=== PATIENT | male | born 1985 | race Hispanic/Latino ===

== ENCOUNTER 2021-10-30 02:21 | Inpatient (IN) | payer OTHER ==
[~2021-10-30] VITALS: Ht 182.9 cm; Wt 228.7 kg
[2021-10-30] MEDS ORDERED: FUROSEMIDE 40MG VIAL IV ONE (03:00)
[2021-10-30 04:11] LABS: BASOPHILS % (AUTO) 0.8 % (0.0-5.0); EOSINOPHILS % (AUTO) 2.1 % (0.0-8.0); HEMATOCRIT 24.2 % (42-54); LYMPHOCYTES % (AUTO) 14.8 % (21.0-51.0); MEAN CORPUSCULAR HEMOGLOBIN 23.2 pg (27.0-33.0); MEAN CORPUSCULAR HGB CONC 28.5 g/dL (32.0-36.0); MEAN CORPUSCULAR VOLUME 81.2 fL (79-99); MONOCYTES % (AUTO) 10.4 % (3.0-13.0); NEUTROPHILS % (AUTO) 71.7 % (40.0-77.0); PLATELET COUNT (AUTO) 96 K/uL (130-400); RED BLOOD CELL COUNT(AUTO) 2.98 MIL/uL (4.50-6.20); RED CELL DISTRIBUTION WIDTH 16.6 % (11.0-15.5); WHITE BLOOD COUNT (AUTO) 5.2 K/uL (4.8-10.8)
[2021-10-30 04:14] LABS: CREATININE 0.8 mg/dL (0.5-1.5); POTASSIUM 3.9 mmol/L (3.5-5.1)
[2021-10-30 04:18] LABS: ALBUMIN 3.1 g/dL (3.5-5.0); BILIRUBIN,DIRECT 0.4 mg/dL (0.0-0.3); BILIRUBIN,TOTAL 1.7 mg/dL (0.2-1.0); MAGNESIUM 1.7 mg/dL (1.80-2.40); TOTAL PROTEIN, SERUM 7.1 g/dL (6.0-8.3)
[2021-10-30 04:33] LABS: APPEARANCE,URINE Clear (CLEAR); BILIRUBIN,URINE Negative (NEGATIVE); COLOR,URINE Yellow (YELLOW); GLUCOSE, URINE (UA) Negative (NEGATIVE); KETONES,URINE Negative (NEGATIVE); LEUKOCYTE ESTERASE ,URINE Trace (NEGATIVE); NITRATE,URINE Negative (NEGATIVE); OCCULT BLOOD,URINE Moderate (NEGATIVE); PH,URINE 6.5 (5.0-8.0); PROTEIN,URINE 300 mg/dL (NEGATIVE)
[2021-10-30 04:38] LABS: B-TYPE NATRIURETIC PEPTIDE 146 pg/mL (0-100)
[2021-10-30 04:44] LABS: HEMOGLOBIN A1C 7.3 % (4.0-6.0)
[2021-10-30] MEDS: BUMETANIDE 1MG/4ML VIAL IVP SCH (04:46)
[2021-10-30 04:54] LABS: BACTERIA,URINE Few /HPF (None Seen)
[2021-10-30] MEDS ORDERED: LACTULOSE 20 GM/30 ML UDCUP PO PRN (05:30)
[2021-10-30] MEDS ORDERED: ONDANSETRON 4MG INJ IV PRN (05:30)
[2021-10-30] MEDS: FUROSEMIDE 20MG VIAL IV SCH ×3 (05:30→20:41)
[2021-10-30] MEDS ORDERED: ACETAMINOPHEN 325 MG TAB PO PRN ×2 (05:30)
[2021-10-30] MEDS: INSULIN HUMULIN R 100 UNIT/ML 3ML SQ SCH ×4 (07:30→21:00)
[2021-10-30] MEDS: PANTOPRAZOLE 40 MG/VIAL IVP SCH ×2 (09:02→20:40)
[2021-10-30 12:01] LABS: HEMATOCRIT 26.6 % (42-54)
[2021-10-30 15:50] VITALS: BP 142/77
[2021-10-30 19:51] VITALS: BP 120/72
[2021-10-30 20:43] LABS: HEMATOCRIT 26.3 % (42-54)
[2021-10-30 23:56] VITALS: BP 118/73
[2021-10-31 03:24] LABS: HEMATOCRIT 25.8 % (42-54); MEAN CORPUSCULAR HGB CONC 28.3 g/dL (32.0-36.0); MEAN CORPUSCULAR VOLUME 81.4 fL (79-99); RED BLOOD CELL COUNT(AUTO) 3.17 MIL/uL (4.50-6.20); RED CELL DISTRIBUTION WIDTH 16.8 % (11.0-15.5); WHITE BLOOD COUNT (AUTO) 3.7 K/uL (4.8-10.8)
[2021-10-31 03:40] LABS: BILIRUBIN,TOTAL 2.3 mg/dL (0.2-1.0); CREATININE 0.7 mg/dL (0.5-1.5); POTASSIUM 3.7 mmol/L (3.5-5.1); TOTAL PROTEIN, SERUM 7.4 g/dL (6.0-8.3)
[2021-10-31 04:02] VITALS: BP 134/76
[2021-10-31] MEDS: BUMETANIDE 1MG/4ML VIAL IVP SCH (04:30)
[2021-10-31] MEDS: FUROSEMIDE 20MG VIAL IV SCH ×3 (05:18→22:30)
[2021-10-31] MEDS: INSULIN HUMULIN R 100 UNIT/ML 3ML SQ SCH ×2 (05:41→21:00)
[2021-10-31 08:00] VITALS: BP 135/74
[2021-10-31] MEDS: PANTOPRAZOLE 40 MG/VIAL IVP SCH ×2 (09:00→22:30)
[2021-10-31] MEDS ORDERED: PHENAZOPYRIDINE HCL 200 MG TABLET PO SCH (10:30)
[2021-10-31 10:54] LABS: INR 1.21 (0.85-1.15)
[2021-10-31] MEDS: CEFTRIAXONE 1G VIAL IVP SCH (11:12)
[2021-10-31 12:00] VITALS: BP 128/73
[2021-10-31] MEDS ORDERED: POTASSIUM CHLORIDE 10% ELIXIR 20 MEQ/15 ML UDCUP PO PRN (12:30)
[2021-10-31] MEDS ORDERED: LIDOCAINE HCL-MPF 1% 2ML VIAL IV PRN (12:30)
[2021-10-31] MEDS ORDERED: POTASSIUM CHLORIDE 20MEQ/100ML 100 ML IV PRN (12:30)
[2021-10-31 16:00] VITALS: BP 123/67
[2021-10-31 20:00] VITALS: BP 118/65
[2021-11-01] VITALS: BP 144/58
[2021-11-01 04:00] VITALS: BP 136/61
[2021-11-01 04:10] LABS: BASOPHILS % (AUTO) 1.2 % (0.0-5.0); EOSINOPHILS % (AUTO) 4.1 % (0.0-8.0); HEMATOCRIT 25.9 % (42-54); MEAN CORPUSCULAR HEMOGLOBIN 22.7 pg (27.0-33.0); MEAN CORPUSCULAR HGB CONC 27.8 g/dL (32.0-36.0); MEAN CORPUSCULAR VOLUME 81.7 fL (79-99); NEUTROPHILS % (AUTO) 60.4 % (40.0-77.0); PLATELET COUNT (AUTO) 90 K/uL (130-400); RED BLOOD CELL COUNT(AUTO) 3.17 MIL/uL (4.50-6.20); RED CELL DISTRIBUTION WIDTH 16.9 % (11.0-15.5); WHITE BLOOD COUNT (AUTO) 3.4 K/uL (4.8-10.8)
[2021-11-01] MEDS: BUMETANIDE 1MG/4ML VIAL IVP SCH (04:30)
[2021-11-01 04:33] LABS: ALBUMIN 2.8 g/dL (3.5-5.0); BILIRUBIN,TOTAL 2.1 mg/dL (0.2-1.0); CREATININE 0.7 mg/dL (0.5-1.5); POTASSIUM 3.3 mmol/L (3.5-5.1); TOTAL PROTEIN, SERUM 7.3 g/dL (6.0-8.3)
[2021-11-01] MEDS: FUROSEMIDE 20MG VIAL IV SCH ×2 (04:43→14:41)
[2021-11-01] MEDS: KCL 20 MEQ ERTAB PO PRN ×3 (04:44→20:40)
[2021-11-01] MEDS: INSULIN HUMULIN R 100 UNIT/ML 3ML SQ SCH ×3 (06:56→16:30)
[2021-11-01 08:00] VITALS: BP 122/67
[2021-11-01] MEDS: FUROSEMIDE 40MG VIAL IV SCH ×2 (09:50→19:30)
[2021-11-01] MEDS: AcetaZOLAMIDE 250 MG TAB PO SCH ×2 (09:50→20:38)
[2021-11-01] MEDS: PANTOPRAZOLE 40 MG/VIAL IVP SCH ×2 (09:50→20:39)
[2021-11-01] MEDS: SPIRONOLACTONE 25 MG TAB PO SCH ×2 (09:51→20:39)
[2021-11-01] MEDS: CEFTRIAXONE 1G VIAL IVP SCH (09:52)
[2021-11-01 12:00] VITALS: BP 125/65
[2021-11-01 16:00] VITALS: BP 136/78
[2021-11-01 20:00] VITALS: BP 140/96
[2021-11-02] VITALS: BP 133/72
[2021-11-02 04:00] VITALS: BP 134/74
[2021-11-02] MEDS ORDERED: 0.9% NACL 250ML 250 ML ONE (04:51)
[2021-11-02 05:55] LABS: ALBUMIN 2.9 g/dL (3.5-5.0); BASOPHILS % (AUTO) 0.9 % (0.0-5.0); CREATININE 0.7 mg/dL (0.5-1.5); EOSINOPHILS % (AUTO) 6.5 % (0.0-8.0); HEMATOCRIT 27.4 % (42-54); LYMPHOCYTES % (AUTO) 22.6 % (21.0-51.0); MEAN CORPUSCULAR HEMOGLOBIN 23.1 pg (27.0-33.0); MEAN CORPUSCULAR HGB CONC 28.5 g/dL (32.0-36.0); MEAN CORPUSCULAR VOLUME 81.3 fL (79-99); MONOCYTES % (AUTO) 9.8 % (3.0-13.0); NEUTROPHILS % (AUTO) 59.9 % (40.0-77.0); PLATELET COUNT (AUTO) 92 K/uL (130-400); POTASSIUM 3.4 mmol/L (3.5-5.1); RED BLOOD CELL COUNT(AUTO) 3.37 MIL/uL (4.50-6.20); RED CELL DISTRIBUTION WIDTH 17.1 % (11.0-15.5); TOTAL PROTEIN, SERUM 7.4 g/dL (6.0-8.3); WHITE BLOOD COUNT (AUTO) 3.4 K/uL (4.8-10.8)
[2021-11-02] MEDS: INSULIN HUMULIN R 100 UNIT/ML 3ML SQ SCH ×4 (06:38→21:00)
[2021-11-02 08:06] VITALS: BP 132/71
[2021-11-02] MEDS ORDERED: MAGNESIUM 2GM PREMIX 50ML 50 ML IV PRN (09:00)
[2021-11-02] MEDS: SPIRONOLACTONE 25 MG TAB PO SCH ×2 (09:34→21:31)
[2021-11-02] MEDS: CEFTRIAXONE 1G VIAL IVP SCH (09:34)
[2021-11-02] MEDS: FUROSEMIDE 40 MG TABLET PO SCH ×2 (09:34→16:39)
[2021-11-02] MEDS: PANTOPRAZOLE 40 MG/VIAL IVP SCH ×2 (09:34→21:30)
[2021-11-02] MEDS: AcetaZOLAMIDE 250 MG TAB PO SCH ×2 (09:35→21:31)
[2021-11-02 11:35] VITALS: BP 129/78
[2021-11-02] MEDS: KCL 20 MEQ ERTAB PO PRN ×2 (12:57→16:38)
[2021-11-02 17:40] VITALS: BP 147/79
[2021-11-02 20:25] VITALS: BP 143/75
[2021-11-03] VITALS (8 sets, daily range): BP systolic 114–154; BP diastolic 33–88
[2021-11-03 03:51] LABS: BASOPHILS % (AUTO) 0.8 % (0.0-5.0); EOSINOPHILS % (AUTO) 6.1 % (0.0-8.0); HEMATOCRIT 28.4 % (42-54); LYMPHOCYTES % (AUTO) 19.8 % (21.0-51.0); MEAN CORPUSCULAR HEMOGLOBIN 22.3 pg (27.0-33.0); MEAN CORPUSCULAR HGB CONC 28.2 g/dL (32.0-36.0); MEAN CORPUSCULAR VOLUME 79.3 fL (79-99); MONOCYTES % (AUTO) 9.5 % (3.0-13.0); NEUTROPHILS % (AUTO) 63.2 % (40.0-77.0); PLATELET COUNT (AUTO) 27 K/uL (130-400); RED BLOOD CELL COUNT(AUTO) 3.58 MIL/uL (4.50-6.20); WHITE BLOOD COUNT (AUTO) 3.6 K/uL (4.8-10.8)
[2021-11-03 04:14] LABS: CREATININE 0.7 mg/dL (0.5-1.5); POTASSIUM 4.2 mmol/L (3.5-5.1)
[2021-11-03] MEDS: INSULIN HUMULIN R 100 UNIT/ML 3ML SQ SCH ×4 (06:00→21:00)
[2021-11-03] MEDS ORDERED: ACETAMINOPHEN WITH CODEINE 1 TAB TAB PO PRN (08:00)
[2021-11-03] MEDS: LIDOCAINE 5% TOPICAL PATCH TP SCH (09:12)
[2021-11-03] MEDS: FUROSEMIDE 40 MG TABLET PO SCH ×2 (09:12→16:58)
[2021-11-03] MEDS: PANTOPRAZOLE 40 MG/VIAL IVP SCH ×2 (09:12→22:02)
[2021-11-03] MEDS: SPIRONOLACTONE 25 MG TAB PO SCH ×2 (09:12→22:02)
[2021-11-03] MEDS: AcetaZOLAMIDE 250 MG TAB PO SCH ×2 (09:16→22:01)
[2021-11-03] MEDS: CEFTRIAXONE 1G VIAL IVP SCH (09:16)
[2021-11-03] MEDS ORDERED: LACTULOSE 20 GM/30 ML UDCUP PO SCH (16:00)
[2021-11-04 04:05] VITALS: BP 132/77
[2021-11-04 05:02] LABS: HEMATOCRIT 28.2 % (42-54); LYMPHOCYTES % (AUTO) 17.5 % (21.0-51.0); MEAN CORPUSCULAR HEMOGLOBIN 22.8 pg (27.0-33.0); MEAN CORPUSCULAR HGB CONC 29.1 g/dL (32.0-36.0); MEAN CORPUSCULAR VOLUME 78.3 fL (79-99); MONOCYTES % (AUTO) 8.8 % (3.0-13.0); NEUTROPHILS % (AUTO) 65.9 % (40.0-77.0); PLATELET COUNT (AUTO) 96 K/uL (130-400); RED CELL DISTRIBUTION WIDTH 16.9 % (11.0-15.5)
[2021-11-04 05:19] LABS: ALBUMIN 2.9 g/dL (3.5-5.0); BILIRUBIN,TOTAL 1.5 mg/dL (0.2-1.0); CREATININE 0.7 mg/dL (0.5-1.5); TOTAL PROTEIN, SERUM 7.7 g/dL (6.0-8.3)
[2021-11-04] MEDS: INSULIN HUMULIN R 100 UNIT/ML 3ML SQ SCH ×4 (06:45→20:45)
[2021-11-04 08:00] VITALS: BP 140/82
[2021-11-04] MEDS: LIDOCAINE 5% TOPICAL PATCH TP SCH (08:21)
[2021-11-04] MEDS: AcetaZOLAMIDE 250 MG TAB PO SCH ×2 (08:21→20:36)
[2021-11-04] MEDS: FUROSEMIDE 40 MG TABLET PO SCH ×2 (08:22→18:29)
[2021-11-04] MEDS: ACETAMINOPHEN WITH CODEINE 1 TAB TAB PO PRN ×2 (08:22→09:41)
[2021-11-04] MEDS: PANTOPRAZOLE 40 MG/VIAL IVP SCH ×2 (08:22→20:36)
[2021-11-04] MEDS: SPIRONOLACTONE 25 MG TAB PO SCH ×2 (08:22→20:38)
[2021-11-04] MEDS ORDERED: DULOXETINE HCL 30 MG CAP PO SCH (09:00)
[2021-11-04] MEDS: CEFTRIAXONE 1G VIAL IVP SCH (10:54)
[2021-11-04 12:00] VITALS: BP 135/76
[2021-11-04 16:00] VITALS: BP 142/85
[2021-11-04] MEDS ORDERED: HYDROCODONE/ACETAMINOPHEN 5/325 MG TAB PO PRN (16:30)
[2021-11-04 20:00] VITALS: BP 148/77
[2021-11-05] VITALS: BP 130/82
[2021-11-05 04:00] VITALS: BP 125/71
[2021-11-05 04:24] LABS: HEMATOCRIT 29.6 % (42-54); MEAN CORPUSCULAR HEMOGLOBIN 22.7 pg (27.0-33.0); MEAN CORPUSCULAR HGB CONC 28.7 g/dL (32.0-36.0); MEAN CORPUSCULAR VOLUME 78.9 fL (79-99); RED BLOOD CELL COUNT(AUTO) 3.75 MIL/uL (4.50-6.20); RED CELL DISTRIBUTION WIDTH 16.8 % (11.0-15.5)
[2021-11-05 04:33] LABS: CREATININE 0.7 mg/dL (0.5-1.5); POTASSIUM 3.8 mmol/L (3.5-5.1)
[2021-11-05] MEDS: INSULIN HUMULIN R 100 UNIT/ML 3ML SQ SCH ×4 (05:57→21:00)
[2021-11-05 08:00] VITALS: BP 130/68
[2021-11-05] MEDS: LIDOCAINE 5% TOPICAL PATCH TP SCH (08:30)
[2021-11-05] MEDS: SPIRONOLACTONE 25 MG TAB PO SCH ×2 (08:31→21:02)
[2021-11-05] MEDS: AcetaZOLAMIDE 250 MG TAB PO SCH ×2 (08:31→21:02)
[2021-11-05] MEDS: PANTOPRAZOLE 40 MG/VIAL IVP SCH ×2 (08:31→21:02)
[2021-11-05] MEDS: DULOXETINE HCL 30 MG CAP PO SCH (08:31)
[2021-11-05] MEDS: FUROSEMIDE 40 MG TABLET PO SCH ×2 (08:32→16:46)
[2021-11-05] MEDS: CEFTRIAXONE 1G VIAL IVP SCH (11:19)
[2021-11-05 11:54] VITALS: BP 149/77
[2021-11-05 16:00] VITALS: BP 128/68
[2021-11-05 20:00] VITALS: BP 126/69
[2021-11-06] VITALS: BP 121/70
[2021-11-06 04:00] VITALS: BP 134/77
[2021-11-06 04:50] LABS: HEMATOCRIT 28.5 % (42-54); MEAN CORPUSCULAR HEMOGLOBIN 22.7 pg (27.0-33.0); MEAN CORPUSCULAR HGB CONC 29.5 g/dL (32.0-36.0); PLATELET COUNT (AUTO) 111 K/uL (130-400); RED CELL DISTRIBUTION WIDTH 16.7 % (11.0-15.5); WHITE BLOOD COUNT (AUTO) 4.4 K/uL (4.8-10.8)
[2021-11-06 05:08] LABS: CREATININE 0.7 mg/dL (0.5-1.5); MAGNESIUM 1.9 mg/dL (1.80-2.40); PHOSPHORUS 3.4 mg/dL (2.5-4.9); POTASSIUM 3.7 mmol/L (3.5-5.1)
[2021-11-06] MEDS: INSULIN HUMULIN R 100 UNIT/ML 3ML SQ SCH ×4 (06:27→21:00)
[2021-11-06 08:00] VITALS: BP 107/68
[2021-11-06] MEDS: LIDOCAINE 5% TOPICAL PATCH TP SCH (08:54)
[2021-11-06] MEDS: PANTOPRAZOLE 40 MG/VIAL IVP SCH ×2 (08:54→21:20)
[2021-11-06] MEDS: SPIRONOLACTONE 25 MG TAB PO SCH ×2 (08:55→21:20)
[2021-11-06] MEDS: AcetaZOLAMIDE 250 MG TAB PO SCH ×2 (08:55→21:20)
[2021-11-06] MEDS: DULOXETINE HCL 30 MG CAP PO SCH (08:55)
[2021-11-06] MEDS: FUROSEMIDE 40 MG TABLET PO SCH ×2 (08:55→17:08)
[2021-11-06] MEDS: HYDROCODONE/ACETAMINOPHEN 5/325 MG TAB PO PRN (09:30)
[2021-11-06] MEDS: CEFTRIAXONE 1G VIAL IVP SCH (10:26)
[2021-11-06 12:00] VITALS: BP 129/69
[2021-11-06 16:00] VITALS: BP 127/78
[2021-11-06 20:00] VITALS: BP_SYST 125; BP_SYST 133; BP_DIAS 64; BP_DIAS 74
[2021-11-07] VITALS: BP 133/74
[2021-11-07 04:00] VITALS: BP 127/73
[2021-11-07 05:34] LABS: BASOPHILS % (AUTO) 0.7 % (0.0-5.0); EOSINOPHILS % (AUTO) 5.3 % (0.0-8.0); HEMATOCRIT 29.9 % (42-54); LYMPHOCYTES % (AUTO) 16.6 % (21.0-51.0); MEAN CORPUSCULAR HEMOGLOBIN 22.6 pg (27.0-33.0); MEAN CORPUSCULAR HGB CONC 29.4 g/dL (32.0-36.0); MEAN CORPUSCULAR VOLUME 76.9 fL (79-99); MONOCYTES % (AUTO) 10.2 % (3.0-13.0); NEUTROPHILS % (AUTO) 66.5 % (40.0-77.0); PLATELET COUNT (AUTO) 118 K/uL (130-400); RED BLOOD CELL COUNT(AUTO) 3.89 MIL/uL (4.50-6.20); RED CELL DISTRIBUTION WIDTH 16.9 % (11.0-15.5); WHITE BLOOD COUNT (AUTO) 4.5 K/uL (4.8-10.8)
[2021-11-07] MEDS: INSULIN HUMULIN R 100 UNIT/ML 3ML SQ SCH ×4 (06:15→20:21)
[2021-11-07 06:30] LABS: ALBUMIN 2.9 g/dL (3.5-5.0); BILIRUBIN,TOTAL 1.7 mg/dL (0.2-1.0); CREATININE 0.7 mg/dL (0.5-1.5); POTASSIUM 3.9 mmol/L (3.5-5.1); TOTAL PROTEIN, SERUM 8.1 g/dL (6.0-8.3)
[2021-11-07 07:10] VITALS: BP 123/64
[2021-11-07] MEDS: AcetaZOLAMIDE 250 MG TAB PO SCH ×2 (08:51→21:34)
[2021-11-07] MEDS: FUROSEMIDE 40 MG TABLET PO SCH ×2 (08:51→16:35)
[2021-11-07] MEDS: LIDOCAINE 5% TOPICAL PATCH TP SCH (08:51)
[2021-11-07] MEDS: SPIRONOLACTONE 25 MG TAB PO SCH ×2 (08:51→21:33)
[2021-11-07] MEDS: DULOXETINE HCL 30 MG CAP PO SCH (08:51)
[2021-11-07] MEDS: HYDROCODONE/ACETAMINOPHEN 5/325 MG TAB PO PRN (09:20)
[2021-11-07] MEDS ORDERED: PANT40TA54 PO (10:34)
[2021-11-07] MEDS ORDERED: FURO40TA5 PO (10:34)
[2021-11-07] MEDS ORDERED: ACET-2079 PO (10:34)
[2021-11-07] MEDS ORDERED: DULO30CA52 PO (10:34)
[2021-11-07] MEDS ORDERED: SPIR50TA PO (10:34)
[2021-11-07] MEDS ORDERED: ACET250T28 PO (10:34)
[2021-11-07] MEDS: CEFTRIAXONE 1G VIAL IVP SCH (11:00)
[2021-11-07 11:10] VITALS: BP 136/74
[2021-11-07 15:10] VITALS: BP 105/55
[2021-11-07] MEDS: PANTOPRAZOLE 40 MG TAB DR PO SCH (16:35)
[2021-11-07 20:11] VITALS: BP 133/76
[2021-11-08] VITALS: BP 129/76
[2021-11-08 04:00] VITALS: BP 123/71
[2021-11-08] MEDS: PANTOPRAZOLE 40 MG TAB DR PO SCH ×2 (05:55→16:32)
[2021-11-08] MEDS: INSULIN HUMULIN R 100 UNIT/ML 3ML SQ SCH ×3 (05:55→16:28)
[2021-11-08 08:13] VITALS: BP 126/69
[2021-11-08] MEDS: FUROSEMIDE 40 MG TABLET PO SCH ×2 (08:41→16:32)
[2021-11-08] MEDS: DULOXETINE HCL 30 MG CAP PO SCH (08:41)
[2021-11-08] MEDS: SPIRONOLACTONE 25 MG TAB PO SCH (08:42)
[2021-11-08] MEDS: AcetaZOLAMIDE 250 MG TAB PO SCH (08:44)
[2021-11-08] MEDS: LIDOCAINE 5% TOPICAL PATCH TP SCH (09:02)
[2021-11-08 12:53] VITALS: BP 133/77
[2021-11-08 16:00] VITALS: BP 122/63
== END 2021-11-08 18:30 | disposition home or self-care (01) | DRG 378 ==
LOC: EDH 02:21 → EDHIP 02:22 → UNDOADMOB 02:22 → INTOOBSV 02:22 → OBSVTOIN 02:22 → EDHIP 17:21 → 4BH 17:21
PROVIDERS: ADMIT Hospitalist; ATTEND Hospitalist
PROC: 30233N1 Transfusion of Nonautologous Red Blood Cells into Peripheral Vein, Percutaneous Approach (ICD-10-PCS; principal; 2021-10-30)
DX: K92.2 Gastrointestinal hemorrhage, unspecified (principal); D62 Acute posthemorrhagic anemia; Z68.45 Body mass index [BMI] 70 or greater, adult; N39.0 Urinary tract infection, site not specified; K74.60 Unspecified cirrhosis of liver; I85.10 Secondary esophageal varices without bleeding; E66.01 Morbid (severe) obesity due to excess calories; Z91.14 Patient's other noncompliance with medication regimen; E11.9 Type 2 diabetes mellitus without complications; I10 Essential (primary) hypertension; Z79.899 Other long term (current) drug therapy
CPT/HCPCS: 36415; 71045; 73562; 76705; 80048; 80053; 80076; 81001; 82948; 83036; 83735; 83880; 84100; 84484; 85014; 85018; 85025; 85027; 85610; 86850; 86900; 86901; 86923; 87088; 93005; 93971; 97039; 99291; C9113; G0378; J0696; J1815; J1940; J3475; J3490; J7050; P9016

== ENCOUNTER 2021-12-12 00:34 | Emergency (ER) | payer OTHER ==
[~2021-12-12] VITALS: Ht 182.9 cm; Wt 263.1 kg
[~2021-12-12 00:34] MED LIST: ACET-2079 PO; ACET250T28 PO; DULO30CA52 PO; FURO40TA5 PO; PANT40TA54 PO; SPIR50TA PO
[2021-12-12] MEDS ORDERED: FUROSEMIDE 40MG VIAL IV ONE ×2 (02:30→05:00)
[2021-12-12 02:32] LABS: BASOPHILS % (AUTO) 0.6 % (0.0-5.0); EOSINOPHILS % (AUTO) 2.8 % (0.0-8.0); LYMPHOCYTES % (AUTO) 12.3 % (21.0-51.0); MEAN CORPUSCULAR HEMOGLOBIN 20.2 pg (27.0-33.0); MEAN CORPUSCULAR HGB CONC 27.2 g/dL (32.0-36.0); MEAN CORPUSCULAR VOLUME 74.2 fL (79-99); MONOCYTES % (AUTO) 8.9 % (3.0-13.0); NEUTROPHILS % (AUTO) 75.2 % (40.0-77.0); PLATELET COUNT (AUTO) 115 K/uL (130-400); RED BLOOD CELL COUNT(AUTO) 3.91 MIL/uL (4.50-6.20); RED CELL DISTRIBUTION WIDTH 17.3 % (11.0-15.5)
[2021-12-12 02:42] LABS: CREATININE 0.8 mg/dL (0.5-1.5); POTASSIUM 3.8 mmol/L (3.5-5.1)
[2021-12-12 02:49] LABS: BILIRUBIN,TOTAL 2.6 mg/dL (0.2-1.0); MAGNESIUM 1.8 mg/dL (1.80-2.40); TOTAL PROTEIN, SERUM 7.9 g/dL (6.0-8.3)
[2021-12-12 03:06] LABS: B-TYPE NATRIURETIC PEPTIDE 132 pg/mL (0-100)
[2021-12-12] MEDS ORDERED: BUMETANIDE 1MG/4ML VIAL IVP SCH (04:00)
[2021-12-12] MEDS ORDERED: FURO40TA7 PO (04:52)
[2021-12-12 05:54] VITALS: BP 139/65
== END 2021-12-12 06:07 | disposition home or self-care (01) ==
LOC: EDH 00:34
DX: N50.89 Other specified disorders of the male genital organs (principal); R60.1 Generalized edema; Z20.822 Contact with and (suspected) exposure to COVID-19; E11.9 Type 2 diabetes mellitus without complications; I11.9 Hypertensive heart disease without heart failure; Z79.899 Other long term (current) drug therapy
CPT/HCPCS: 36415; 71045; 80053; 83735; 83880; 84484; 85025; 87635; 93005; 96374; 96375; 99285; C9803; J1940 ×2; J3490

== ENCOUNTER 2022-03-14 19:26 | Inpatient (IN) | payer OTHER ==
[~2022-03-14] VITALS: Ht 182.9 cm; Wt 270.9 kg
[~2022-03-14 19:26] MED LIST changes: +FURO40TA7 PO
[2022-03-14] MEDS ORDERED: 0.9%NACL 1000ML 1,000 ML IV ONE ×2 (20:00→20:30)
[2022-03-14] MEDS ORDERED: ERYTHROMYCIN BASE 0.5% OPHTH OINT 1 GM TUBE OU SCH (20:30)
[2022-03-14] MEDS ORDERED: CEFTRIAXONE 1G VIAL IVP ONE (20:30)
[2022-03-14 21:04] LABS: BASOPHILS % (AUTO) 1.1 % (0.0-5.0); EOSINOPHILS % (AUTO) 5.9 % (0.0-8.0); HEMATOCRIT 25.5 % (42-54); LYMPHOCYTES % (AUTO) 11.2 % (21.0-51.0); MEAN CORPUSCULAR HEMOGLOBIN 16.8 pg (27.0-33.0); MEAN CORPUSCULAR HGB CONC 25.1 g/dL (32.0-36.0); MEAN CORPUSCULAR VOLUME 66.9 fL (79-99); MONOCYTES % (AUTO) 12.2 % (3.0-13.0); NEUTROPHILS % (AUTO) 69.1 % (40.0-77.0); NUCLEATED RED BLOOD CELLS 0.6 % (0.0-0.19); PLATELET COUNT (AUTO) 103 K/uL (130-400); RED BLOOD CELL COUNT(AUTO) 3.81 MIL/uL (4.50-6.20); RED CELL DISTRIBUTION WIDTH 19.4 % (11.0-15.5); WHITE BLOOD COUNT (AUTO) 6.3 K/uL (4.8-10.8)
[2022-03-14 21:20] LABS: CREATININE 0.7 mg/dL (0.5-1.5); POTASSIUM 3.4 mmol/L (3.5-5.1)
[2022-03-14 21:27] LABS: INFLUENZA TYPE A NEGATIVE FOR TYPE A (NEG); INFLUENZA TYPE B NEGATIVE FOR TYPE B (NEG)
[2022-03-14 21:29] LABS: ALBUMIN 2.7 g/dL (3.5-5.0); TOTAL PROTEIN, SERUM 7.5 g/dL (6.0-8.3)
[2022-03-14] MEDS ORDERED: 0.9% NACL 500ML IV.SOLN 500 ML IV ONE (21:30)
[2022-03-14] MEDS ORDERED: GLUCAGON 1MG KIT 1 MG ML IM PRN (22:30)
[2022-03-14] MEDS ORDERED: DEXTROSE 50%-WATER 50 ML DISP.SYRIN IV PRN (22:30)
[2022-03-14] MEDS: INSULIN HUMULIN R 100 UNIT/ML 3ML SQ SCH (22:30)
[2022-03-14] MEDS ORDERED: NITROGLYCERIN 0.4 MG SL TAB SL PRN (22:30)
[2022-03-14] MEDS ORDERED: ONDANSETRON 4MG INJ IV PRN (22:30)
[2022-03-14] MEDS ORDERED: VANCOMYCIN 1G/250ML KIT 250 ML IV SCH (22:30)
[2022-03-14] MEDS ORDERED: ACETAMINOPHEN 325 MG TAB PO PRN (22:30)
[2022-03-14 22:41] LABS: HEMOGLOBIN A1C 6.9 % (4.0-6.0)
[2022-03-14] MEDS ORDERED: VANCOMYCIN PROTOCOL PER PHARMACY IV SCH (23:30)
[2022-03-15] MEDS ORDERED: ALBUMIN (HUMAN) 25% 50 ML IV SCH (00:30)
[2022-03-15] MEDS ORDERED: FUROSEMIDE 40MG VIAL IV ONE (00:30)
[2022-03-15 01:00] VITALS: BP 109/55
[2022-03-15 01:04] LABS: INR 1.3 (0.85-1.15)
[2022-03-15 01:06] LABS: PARTIAL THROMBOPLASTIN TIME 29.5 SEC (26.3-35.5)
[2022-03-15 02:07] LABS: APPEARANCE,URINE CLOUDY (CLEAR); BILIRUBIN,URINE 0.5 mg/dL (NEGATIVE); COLOR,URINE DARK-YELLOW (YELLOW); GLUCOSE, URINE (UA) 50 mg/dL (NEGATIVE); KETONES,URINE NEGATIVE (NEGATIVE); LEUKOCYTE ESTERASE ,URINE 250 Leu/uL (NEGATIVE); NITRATE,URINE NEGATIVE (NEGATIVE); OCCULT BLOOD,URINE NEGATIVE (NEGATIVE); PROTEIN,URINE 70 mg/dL (NEGATIVE); UROBILINOGEN,URINE 12 mg/dL (0.2-1.0)
[2022-03-15 02:15] LABS: BACTERIA,URINE RARE /HPF (None Seen); MUCUS,URINE FEW LPF (None Seen); SQUAMOUS EPITHELIAL CELL,UR MANY /HPF (0-2); URIC ACID CRYSTALS,URINE RARE /LPF (None Seen)
[2022-03-15 04:59] VITALS: BP 110/84
[2022-03-15] MEDS: INSULIN HUMULIN R 100 UNIT/ML 3ML SQ SCH ×4 (05:14→20:50)
[2022-03-15 07:12] LABS: BASOPHILS % (AUTO) 0.8 % (0.0-5.0); HEMATOCRIT 26.9 % (42-54); LYMPHOCYTES % (AUTO) 12.6 % (21.0-51.0); MEAN CORPUSCULAR HEMOGLOBIN 17.9 pg (27.0-33.0); MEAN CORPUSCULAR VOLUME 68.8 fL (79-99); MONOCYTES % (AUTO) 12.3 % (3.0-13.0); NEUTROPHILS % (AUTO) 65.6 % (40.0-77.0); NUCLEATED RED BLOOD CELLS 0.7 % (0.0-0.19); PLATELET COUNT (AUTO) 105 K/uL (130-400); RED BLOOD CELL COUNT(AUTO) 3.91 MIL/uL (4.50-6.20); RED CELL DISTRIBUTION WIDTH 20.6 % (11.0-15.5); WHITE BLOOD COUNT (AUTO) 6.1 K/uL (4.8-10.8)
[2022-03-15 07:30] VITALS: BP 103/63
[2022-03-15 07:40] LABS: ALBUMIN 2.7 g/dL (3.5-5.0); CREATININE 0.7 mg/dL (0.5-1.5); MAGNESIUM 1.9 mg/dL (1.80-2.40); POTASSIUM 3.3 mmol/L (3.5-5.1); TOTAL PROTEIN, SERUM 7.5 g/dL (6.0-8.3)
[2022-03-15] MEDS ORDERED: FAMOTIDINE 20MG TAB PO SCH (09:00)
[2022-03-15] MEDS: ERYTHROMYCIN BASE 0.5% OPHTH OINT 1 GM TUBE OU SCH ×2 (09:27→20:53)
[2022-03-15 11:00] VITALS: BP 119/62
[2022-03-15] MEDS ORDERED: POTASSIUM CHLORIDE 20MEQ/100ML 100 ML IV PRN (14:30)
[2022-03-15] MEDS ORDERED: COMPOUND IV REFRIGERATED 1 EACH IVSOLN MISC PRN (14:30)
[2022-03-15] MEDS ORDERED: MAGNESIUM 2GM PREMIX 50ML 50 ML IV PRN (14:30)
[2022-03-15] MEDS ORDERED: LIDOCAINE HCL-MPF 1% 2ML VIAL IV PRN (14:30)
[2022-03-15] MEDS: KCL 20 MEQ ERTAB PO PRN (15:57)
[2022-03-15] MEDS: VANCOMYCIN 2GM/500 ML BAG 500 ML IV SCH ×2 (15:57→22:26)
[2022-03-15 16:00] VITALS: BP 117/67
[2022-03-15 19:00] VITALS: BP 122/66
[2022-03-15] MEDS: CEFTRIAXONE 1G VIAL IV SCH (20:52)
[2022-03-16] VITALS: BP 132/70
[2022-03-16] MEDS: ACETAMINOPHEN 325 MG TAB PO PRN ×2 (00:48→21:45)
[2022-03-16] MEDS: POTASSIUM CHLORIDE 10% ELIXIR 20 MEQ/15 ML UDCUP PO PRN ×2 (00:48→02:29)
[2022-03-16 04:00] VITALS: BP 141/75
[2022-03-16 04:43] LABS: BASOPHILS % (AUTO) 1.4 % (0.0-5.0); HEMATOCRIT 28.1 % (42-54); LYMPHOCYTES % (AUTO) 16.9 % (21.0-51.0); MEAN CORPUSCULAR HEMOGLOBIN 17.5 pg (27.0-33.0); MEAN CORPUSCULAR HGB CONC 25.3 g/dL (32.0-36.0); MEAN CORPUSCULAR VOLUME 69.4 fL (79-99); MONOCYTES % (AUTO) 12.2 % (3.0-13.0); NUCLEATED RED BLOOD CELLS 0.7 % (0.0-0.19); PLATELET COUNT (AUTO) 103 K/uL (130-400); RED BLOOD CELL COUNT(AUTO) 4.05 MIL/uL (4.50-6.20); RED CELL DISTRIBUTION WIDTH 20.4 % (11.0-15.5); WHITE BLOOD COUNT (AUTO) 5.9 K/uL (4.8-10.8)
[2022-03-16 05:06] LABS: ALBUMIN 2.9 g/dL (3.5-5.0); CREATININE 0.7 mg/dL (0.5-1.5); POTASSIUM 4.7 mmol/L (3.5-5.1)
[2022-03-16 05:09] LABS: B-TYPE NATRIURETIC PEPTIDE 205 pg/mL (0-100)
[2022-03-16] MEDS: INSULIN HUMULIN R 100 UNIT/ML 3ML SQ SCH ×4 (05:26→21:28)
[2022-03-16 07:30] VITALS: BP 120/69
[2022-03-16] MEDS: VANCOMYCIN 2GM/500 ML BAG 500 ML IV SCH ×3 (07:36→23:54)
[2022-03-16] MEDS: ERYTHROMYCIN BASE 0.5% OPHTH OINT 1 GM TUBE OU SCH ×2 (07:36→21:28)
[2022-03-16 11:00] VITALS: BP 130/75
[2022-03-16] MEDS ORDERED: LEVO-70 PO (12:56)
[2022-03-16 16:00] VITALS: BP 142/83
[2022-03-16] MEDS ORDERED: BACITRACIN 1 EACH PACKET TP SCH (16:00)
[2022-03-16] MEDS ORDERED: FUROSEMIDE 20MG VIAL IV SCH (17:00)
[2022-03-16] MEDS ORDERED: BACITRACIN 28.4 GM OINT TP SCH (17:30)
[2022-03-16 20:00] VITALS: BP 136/70
[2022-03-16] MEDS: CEFTRIAXONE 1G VIAL IV SCH (21:26)
[2022-03-16] MEDS: FAMOTIDINE 20MG TAB PO SCH (21:28)
[2022-03-17] VITALS (7 sets, daily range): BP systolic 114–141; BP diastolic 61–79
[2022-03-17 05:13] LABS: % IRON SATURATION 4.3 % (30-44)
[2022-03-17 05:15] LABS: HEMATOCRIT 26.9 % (42-54); MEAN CORPUSCULAR HEMOGLOBIN 17.6 pg (27.0-33.0); MEAN CORPUSCULAR HGB CONC 25.7 g/dL (32.0-36.0); MEAN CORPUSCULAR VOLUME 68.8 fL (79-99); NUCLEATED RED BLOOD CELLS 0.4 % (0.0-0.19); RED BLOOD CELL COUNT(AUTO) 3.91 MIL/uL (4.50-6.20); RED CELL DISTRIBUTION WIDTH 20.5 % (11.0-15.5); WHITE BLOOD COUNT (AUTO) 5.2 K/uL (4.8-10.8)
[2022-03-17 05:24] LABS: ALBUMIN 2.7 g/dL (3.5-5.0); CREATININE 0.7 mg/dL (0.5-1.5); POTASSIUM 3.7 mmol/L (3.5-5.1); TOTAL PROTEIN, SERUM 7.5 g/dL (6.0-8.3)
[2022-03-17] MEDS: INSULIN HUMULIN R 100 UNIT/ML 3ML SQ SCH ×4 (07:00→21:48)
[2022-03-17] MEDS: VANCOMYCIN 2GM/500 ML BAG 500 ML IV SCH (08:51)
[2022-03-17] MEDS: ERYTHROMYCIN BASE 0.5% OPHTH OINT 1 GM TUBE OU SCH ×2 (08:51→21:42)
[2022-03-17] MEDS: FAMOTIDINE 20MG TAB PO SCH ×2 (08:51→21:48)
[2022-03-17 12:26] LABS: HEMATOCRIT 28.4 % (42-54)
[2022-03-17] MEDS: LEVOFLOXACIN 500 MG TABLET PO SCH (17:19)
[2022-03-17] MEDS ORDERED: PHARMACY COMMUNICATION MISC SCH (21:30)
[2022-03-18 04:10] VITALS: BP 146/86
[2022-03-18 05:27] LABS: HEMATOCRIT 27.7 % (42-54); MEAN CORPUSCULAR HEMOGLOBIN 18.2 pg (27.0-33.0); MEAN CORPUSCULAR HGB CONC 25.6 g/dL (32.0-36.0); RED BLOOD CELL COUNT(AUTO) 3.9 MIL/uL (4.50-6.20); RED CELL DISTRIBUTION WIDTH 21.9 % (11.0-15.5)
[2022-03-18 05:38] LABS: POTASSIUM 3.8 mmol/L (3.5-5.1)
[2022-03-18 05:39] LABS: CREATININE 0.6 mg/dL (0.5-1.5)
[2022-03-18] MEDS: INSULIN HUMULIN R 100 UNIT/ML 3ML SQ SCH ×4 (06:20→21:00)
[2022-03-18 08:00] VITALS: BP 133/70
[2022-03-18] MEDS: FAMOTIDINE 20MG TAB PO SCH ×2 (08:37→20:50)
[2022-03-18] MEDS: LEVOFLOXACIN 500 MG TABLET PO SCH (08:37)
[2022-03-18] MEDS: ERYTHROMYCIN BASE 0.5% OPHTH OINT 1 GM TUBE OU SCH ×2 (08:37→21:18)
[2022-03-18 12:00] VITALS: BP 117/55
[2022-03-18 16:00] VITALS: BP 125/75
[2022-03-18] MEDS ORDERED: COMPOUND IV MISC 1 EACH IVSOLN MISC PRN (16:00)
[2022-03-18 19:00] VITALS: BP 107/54
[2022-03-18] MEDS: ACETAMINOPHEN 325 MG TAB PO PRN (21:18)
[2022-03-18] MEDS: BACITRACIN 28.4 GM OINT TP SCH (21:22)
[2022-03-18 23:49] VITALS: BP 114/55
[2022-03-19 04:00] VITALS: BP 116/70
[2022-03-19 05:05] LABS: HEMATOCRIT 30.1 % (42-54); MEAN CORPUSCULAR HEMOGLOBIN 18.3 pg (27.0-33.0); MEAN CORPUSCULAR HGB CONC 25.6 g/dL (32.0-36.0); MEAN CORPUSCULAR VOLUME 71.7 fL (79-99); RED BLOOD CELL COUNT(AUTO) 4.2 MIL/uL (4.50-6.20); RED CELL DISTRIBUTION WIDTH 22.3 % (11.0-15.5); WHITE BLOOD COUNT (AUTO) 4.3 K/uL (4.8-10.8)
[2022-03-19 05:15] LABS: CREATININE 0.6 mg/dL (0.5-1.5)
[2022-03-19] MEDS: INSULIN HUMULIN R 100 UNIT/ML 3ML SQ SCH ×4 (06:50→21:00)
[2022-03-19] MEDS: CEFAZOLIN SODIUM 1 GM VIAL IVP SCH ×3 (06:50→22:25)
[2022-03-19 08:00] VITALS: BP 123/59
[2022-03-19] MEDS: BACITRACIN 28.4 GM OINT TP SCH (09:35)
[2022-03-19] MEDS: LEVOFLOXACIN 500 MG TABLET PO SCH (09:35)
[2022-03-19] MEDS: FAMOTIDINE 20MG TAB PO SCH ×2 (09:35→22:26)
[2022-03-19] MEDS: IRON SUCROSE COMPLEX 300 MG in 0.9%NACL 50ML 50 ML IV SCH (09:35)
[2022-03-19] MEDS: ERYTHROMYCIN BASE 0.5% OPHTH OINT 1 GM TUBE OU SCH ×2 (09:35→22:26)
[2022-03-19 11:52] VITALS: BP 129/77
[2022-03-19] MEDS: ACETAMINOPHEN 325 MG TAB PO PRN ×2 (12:14→22:36)
[2022-03-19 16:00] VITALS: BP 131/68
[2022-03-19 21:07] VITALS: BP 124/61
[2022-03-20 00:16] VITALS: BP 122/59
[2022-03-20 04:07] VITALS: BP 100/57
[2022-03-20] MEDS: CEFAZOLIN SODIUM 1 GM VIAL IVP SCH ×3 (06:13→23:08)
[2022-03-20] MEDS: INSULIN HUMULIN R 100 UNIT/ML 3ML SQ SCH ×4 (06:14→20:43)
[2022-03-20 08:00] VITALS: BP 128/68
[2022-03-20] MEDS: BACITRACIN 28.4 GM OINT TP SCH (08:03)
[2022-03-20] MEDS: ERYTHROMYCIN BASE 0.5% OPHTH OINT 1 GM TUBE OU SCH ×2 (08:03→20:50)
[2022-03-20] MEDS: LEVOFLOXACIN 500 MG TABLET PO SCH (08:04)
[2022-03-20] MEDS: IRON SUCROSE COMPLEX 300 MG in 0.9%NACL 50ML 50 ML IV SCH (08:04)
[2022-03-20] MEDS: FAMOTIDINE 20MG TAB PO SCH ×2 (08:04→20:49)
[2022-03-20 12:00] VITALS: BP 120/68
[2022-03-20 16:00] VITALS: BP 118/72
[2022-03-20 20:00] VITALS: BP 142/67
[2022-03-21] VITALS: BP 137/69
[2022-03-21 03:50] LABS: BASOPHILS % (AUTO) 1.1 % (0.0-5.0); EOSINOPHILS % (AUTO) 6.3 % (0.0-8.0); HEMATOCRIT 28.1 % (42-54); LYMPHOCYTES % (AUTO) 13.4 % (21.0-51.0); MEAN CORPUSCULAR HEMOGLOBIN 18.5 pg (27.0-33.0); MEAN CORPUSCULAR HGB CONC 25.6 g/dL (32.0-36.0); MEAN CORPUSCULAR VOLUME 72.1 fL (79-99); MONOCYTES % (AUTO) 10.5 % (3.0-13.0); NEUTROPHILS % (AUTO) 67.6 % (40.0-77.0); NUCLEATED RED BLOOD CELLS 0.4 % (0.0-0.19); PLATELET COUNT (AUTO) 124 K/uL (130-400); RED CELL DISTRIBUTION WIDTH 23.5 % (11.0-15.5); WHITE BLOOD COUNT (AUTO) 5.2 K/uL (4.8-10.8)
[2022-03-21 04:00] VITALS: BP 118/55
[2022-03-21 04:04] LABS: CREATININE 0.7 mg/dL (0.5-1.5); POTASSIUM 3.6 mmol/L (3.5-5.1)
[2022-03-21] MEDS: KCL 20 MEQ ERTAB PO PRN ×2 (04:23→06:26)
[2022-03-21] MEDS: ACETAMINOPHEN 325 MG TAB PO PRN ×2 (04:27→17:38)
[2022-03-21] MEDS: INSULIN HUMULIN R 100 UNIT/ML 3ML SQ SCH ×3 (06:15→21:00)
[2022-03-21] MEDS: CEFAZOLIN SODIUM 1 GM VIAL IVP SCH ×3 (06:26→22:00)
[2022-03-21 08:00] VITALS: BP 121/59
[2022-03-21] MEDS: LEVOFLOXACIN 500 MG TABLET PO SCH (09:52)
[2022-03-21] MEDS: BACITRACIN 28.4 GM OINT TP SCH (09:53)
[2022-03-21] MEDS: FAMOTIDINE 20MG TAB PO SCH ×2 (09:53→21:30)
[2022-03-21] MEDS: ERYTHROMYCIN BASE 0.5% OPHTH OINT 1 GM TUBE OU SCH (09:54)
[2022-03-21] MEDS: IRON SUCROSE COMPLEX 300 MG in 0.9%NACL 50ML 50 ML IV SCH (09:55)
[2022-03-21 12:00] VITALS: BP 112/44
[2022-03-21 15:30] VITALS: BP 116/48
[2022-03-21 20:00] VITALS: BP 128/70
[2022-03-22] VITALS (7 sets, daily range): BP systolic 97–142; BP diastolic 49–78
[2022-03-22] MEDS: ERYTHROMYCIN BASE 0.5% OPHTH OINT 1 GM TUBE OU SCH ×3 (00:23→21:00)
[2022-03-22] MEDS: CEFAZOLIN SODIUM 1 GM VIAL IVP SCH ×3 (05:51→22:20)
[2022-03-22] MEDS: FAMOTIDINE 20MG TAB PO SCH ×2 (09:17→22:20)
[2022-03-22] MEDS: BACITRACIN 28.4 GM OINT TP SCH (09:18)
[2022-03-22] MEDS: LEVOFLOXACIN 500 MG TABLET PO SCH (09:18)
[2022-03-22] MEDS: INSULIN HUMULIN R 100 UNIT/ML 3ML SQ SCH ×2 (11:30→21:00)
[2022-03-22 11:52] LABS: HEMATOCRIT 30.1 % (42-54); MEAN CORPUSCULAR HGB CONC 25.6 g/dL (32.0-36.0); MEAN CORPUSCULAR VOLUME 74.3 fL (79-99); PLATELET COUNT (AUTO) 128 K/uL (130-400); RED BLOOD CELL COUNT(AUTO) 4.05 MIL/uL (4.50-6.20); RED CELL DISTRIBUTION WIDTH 25.2 % (11.0-15.5); WHITE BLOOD COUNT (AUTO) 5.9 K/uL (4.8-10.8)
[2022-03-23 03:42] VITALS: BP 123/64
[2022-03-23] MEDS: INSULIN HUMULIN R 100 UNIT/ML 3ML SQ SCH ×3 (06:48→21:00)
[2022-03-23] MEDS: CEFAZOLIN SODIUM 1 GM VIAL IVP SCH ×3 (06:49→22:18)
[2022-03-23 07:30] VITALS: BP 123/75
[2022-03-23] MEDS: LEVOFLOXACIN 500 MG TABLET PO SCH (07:54)
[2022-03-23] MEDS: FAMOTIDINE 20MG TAB PO SCH ×2 (07:55→22:18)
[2022-03-23] MEDS: BACITRACIN 28.4 GM OINT TP SCH (07:55)
[2022-03-23] MEDS: ERYTHROMYCIN BASE 0.5% OPHTH OINT 1 GM TUBE OU SCH ×2 (09:00→21:00)
[2022-03-23 11:30] VITALS: BP 129/52
[2022-03-23 16:40] VITALS: BP 151/74
[2022-03-23 20:33] VITALS: BP 138/76
[2022-03-24] VITALS (7 sets, daily range): BP systolic 120–140; BP diastolic 64–76
[2022-03-24 04:52] LABS: BASOPHILS % (AUTO) 0.9 % (0.0-5.0); EOSINOPHILS % (AUTO) 6.3 % (0.0-8.0); HEMATOCRIT 28.5 % (42-54); LYMPHOCYTES % (AUTO) 10.5 % (21.0-51.0); MEAN CORPUSCULAR HEMOGLOBIN 19.5 pg (27.0-33.0); MONOCYTES % (AUTO) 7.8 % (3.0-13.0); NEUTROPHILS % (AUTO) 73.9 % (40.0-77.0); PLATELET COUNT (AUTO) 105 K/uL (130-400); WHITE BLOOD COUNT (AUTO) 6.8 K/uL (4.8-10.8)
[2022-03-24 05:01] LABS: CREATININE 0.6 mg/dL (0.5-1.5); MAGNESIUM 2.2 mg/dL (1.80-2.40); POTASSIUM 3.8 mmol/L (3.5-5.1)
[2022-03-24] MEDS: INSULIN HUMULIN R 100 UNIT/ML 3ML SQ SCH ×4 (06:12→20:02)
[2022-03-24] MEDS: CEFAZOLIN SODIUM 1 GM VIAL IVP SCH ×3 (06:16→19:45)
[2022-03-24] MEDS: ERYTHROMYCIN BASE 0.5% OPHTH OINT 1 GM TUBE OU SCH ×2 (08:52→19:45)
[2022-03-24] MEDS: LEVOFLOXACIN 500 MG TABLET PO SCH (08:52)
[2022-03-24] MEDS: BACITRACIN 28.4 GM OINT TP SCH (08:52)
[2022-03-24] MEDS: FAMOTIDINE 20MG TAB PO SCH ×2 (08:52→19:45)
[2022-03-24] MEDS: KCL 20 MEQ ERTAB PO PRN ×2 (11:07→13:57)
[2022-03-25] MEDS: CEFAZOLIN SODIUM 1 GM VIAL IVP SCH ×3 (04:39→20:25)
[2022-03-25 04:50] VITALS: BP 138/75
[2022-03-25 05:01] LABS: BASOPHILS % (AUTO) 0.8 % (0.0-5.0); HEMATOCRIT 30.7 % (42-54); LYMPHOCYTES % (AUTO) 13.7 % (21.0-51.0); MEAN CORPUSCULAR HEMOGLOBIN 19.6 pg (27.0-33.0); MEAN CORPUSCULAR HGB CONC 25.7 g/dL (32.0-36.0); MEAN CORPUSCULAR VOLUME 76.2 fL (79-99); MONOCYTES % (AUTO) 8.4 % (3.0-13.0); NEUTROPHILS % (AUTO) 70.4 % (40.0-77.0); PLATELET COUNT (AUTO) 114 K/uL (130-400); RED BLOOD CELL COUNT(AUTO) 4.03 MIL/uL (4.50-6.20); RED CELL DISTRIBUTION WIDTH 28.2 % (11.0-15.5); WHITE BLOOD COUNT (AUTO) 6.1 K/uL (4.8-10.8)
[2022-03-25] MEDS: INSULIN HUMULIN R 100 UNIT/ML 3ML SQ SCH ×4 (05:44→20:25)
[2022-03-25] MEDS: ERYTHROMYCIN BASE 0.5% OPHTH OINT 1 GM TUBE OU SCH ×2 (07:23→18:07)
[2022-03-25 08:00] VITALS: BP 138/69
[2022-03-25] MEDS: BACITRACIN 28.4 GM OINT TP SCH (08:41)
[2022-03-25] MEDS: LEVOFLOXACIN 500 MG TABLET PO SCH (08:41)
[2022-03-25] MEDS: FAMOTIDINE 20MG TAB PO SCH ×2 (08:41→20:25)
[2022-03-25 12:00] VITALS: BP 119/79
[2022-03-25 16:00] VITALS: BP 112/82
[2022-03-25] MEDS ORDERED: DOCUSATE SODIUM 100 MG CAP PO ONE (20:22)
[2022-03-25] MEDS: DOCUSATE SODIUM 100 MG CAP PO SCH (21:00)
[2022-03-25 21:15] VITALS: BP 139/69
[2022-03-25 23:46] VITALS: BP 144/77
[2022-03-26 04:00] VITALS: BP 136/82
[2022-03-26] MEDS: INSULIN HUMULIN R 100 UNIT/ML 3ML SQ SCH ×4 (05:51→19:38)
[2022-03-26] MEDS: ERYTHROMYCIN BASE 0.5% OPHTH OINT 1 GM TUBE OU SCH ×2 (06:09→18:04)
[2022-03-26] MEDS: CEFAZOLIN SODIUM 1 GM VIAL IVP SCH (06:09)
[2022-03-26 08:00] VITALS: BP 127/69
[2022-03-26] MEDS: LEVOFLOXACIN 500 MG TABLET PO SCH (08:37)
[2022-03-26] MEDS: FAMOTIDINE 20MG TAB PO SCH ×2 (08:37→20:31)
[2022-03-26] MEDS: POLYETHYLENE GLYCOL 3350 17 GM POWD.PACK PO SCH (08:37)
[2022-03-26] MEDS: DOCUSATE SODIUM 100 MG CAP PO SCH ×2 (08:37→20:31)
[2022-03-26] MEDS: BACITRACIN 28.4 GM OINT TP SCH (08:40)
[2022-03-26] MEDS: CEFUROXIME AXETIL 250 MG TABLET PO SCH ×3 (09:00→20:31)
[2022-03-26 12:00] VITALS: BP 122/69
[2022-03-26 16:00] VITALS: BP 121/68
[2022-03-26 20:28] VITALS: BP 129/66
[2022-03-26] MEDS: NYSTATIN 15 GM POWDER TP SCH (20:31)
[2022-03-27] VITALS: BP 131/78
[2022-03-27 04:32] VITALS: BP 142/71
[2022-03-27] MEDS: INSULIN HUMULIN R 100 UNIT/ML 3ML SQ SCH ×3 (06:07→21:00)
[2022-03-27 07:00] VITALS: BP 129/69
[2022-03-27] MEDS: POLYETHYLENE GLYCOL 3350 17 GM POWD.PACK PO SCH (09:00)
[2022-03-27] MEDS: ERYTHROMYCIN BASE 0.5% OPHTH OINT 1 GM TUBE OU SCH ×2 (09:00→21:37)
[2022-03-27] MEDS: LEVOFLOXACIN 500 MG TABLET PO SCH (09:59)
[2022-03-27] MEDS: FAMOTIDINE 20MG TAB PO SCH ×2 (09:59→21:38)
[2022-03-27] MEDS: CEFUROXIME AXETIL 250 MG TABLET PO SCH ×2 (09:59→21:38)
[2022-03-27] MEDS: DOCUSATE SODIUM 100 MG CAP PO SCH ×2 (09:59→21:38)
[2022-03-27] MEDS: BACITRACIN 28.4 GM OINT TP SCH (10:00)
[2022-03-27] MEDS: NYSTATIN 15 GM POWDER TP SCH ×2 (10:00→21:37)
[2022-03-27 11:00] VITALS: BP 149/76
[2022-03-27 15:05] VITALS: BP 131/74
[2022-03-27 20:00] VITALS: BP 124/65
[2022-03-28] VITALS: BP 133/75
[2022-03-28 04:00] VITALS: BP 108/53
[2022-03-28] MEDS ORDERED: Cefuroxime Axetil PO (06:57)
[2022-03-28 07:00] VITALS: BP 124/66
[2022-03-28] MEDS: INSULIN HUMULIN R 100 UNIT/ML 3ML SQ SCH ×3 (07:30→16:30)
[2022-03-28] MEDS: ERYTHROMYCIN BASE 0.5% OPHTH OINT 1 GM TUBE OU SCH (09:00)
[2022-03-28] MEDS: CEFUROXIME AXETIL 250 MG TABLET PO SCH (09:25)
[2022-03-28] MEDS: FAMOTIDINE 20MG TAB PO SCH (09:25)
[2022-03-28] MEDS: DOCUSATE SODIUM 100 MG CAP PO SCH (09:25)
[2022-03-28] MEDS: POLYETHYLENE GLYCOL 3350 17 GM POWD.PACK PO SCH (09:25)
[2022-03-28] MEDS: LEVOFLOXACIN 500 MG TABLET PO SCH (09:25)
[2022-03-28] MEDS: NYSTATIN 15 GM POWDER TP SCH (09:44)
[2022-03-28] MEDS: BACITRACIN 28.4 GM OINT TP SCH (09:44)
[2022-03-28 11:00] VITALS: BP 144/84
[2022-03-28 15:00] VITALS: BP 135/74
== END 2022-03-28 17:47 | disposition home or self-care (01) | DRG 602 ==
LOC: EDH 19:26 → EDHIP 19:27 → 4AH 03-15 00:30
PROVIDERS: ADMIT Hospitalist; ATTEND Hospitalist
PROC: 30233N1 Transfusion of Nonautologous Red Blood Cells into Peripheral Vein, Percutaneous Approach (ICD-10-PCS; principal; 2022-03-15)
PROC: 5A09357 Assistance with Respiratory Ventilation, Less than 24 Consecutive Hours, Continuous Positive Airway Pressure (ICD-10-PCS; 2022-03-16)
PROC: 5A09357 Assistance with Respiratory Ventilation, Less than 24 Consecutive Hours, Continuous Positive Airway Pressure (ICD-10-PCS; 2022-03-17)
PROC: 5A09357 Assistance with Respiratory Ventilation, Less than 24 Consecutive Hours, Continuous Positive Airway Pressure (ICD-10-PCS; 2022-03-18)
PROC: 5A09357 Assistance with Respiratory Ventilation, Less than 24 Consecutive Hours, Continuous Positive Airway Pressure (ICD-10-PCS; 2022-03-19)
PROC: 5A09357 Assistance with Respiratory Ventilation, Less than 24 Consecutive Hours, Continuous Positive Airway Pressure (ICD-10-PCS; 2022-03-22)
DX: L03.115 Cellulitis of right lower limb (principal); I50.33 Acute on chronic diastolic (congestive) heart failure; D62 Acute posthemorrhagic anemia; Z20.822 Contact with and (suspected) exposure to COVID-19; Z68.45 Body mass index [BMI] 70 or greater, adult; E66.2 Morbid (severe) obesity with alveolar hypoventilation; I11.0 Hypertensive heart disease with heart failure; E87.6 Hypokalemia; R62.7 Adult failure to thrive; D69.6 Thrombocytopenia, unspecified; G47.33 Obstructive sleep apnea (adult) (pediatric); K74.60 Unspecified cirrhosis of liver; I25.10 Atherosclerotic heart disease of native coronary artery without angina pectoris; Z59.00 Homelessness unspecified; Z74.01 Bed confinement status
CPT/HCPCS: 36415; 36430; 70450; 71045; 80048; 80053; 80202; 81001; 82270; 82728; 82948; 83036; 83540; 83550; 83605; 83735; 83880; 84145; 84484; 85014; 85018; 85025; 85027; 85610; 85651; 85730; 86140; 86850; 86900; 86901; 86923; 87040; 87070; 87077; 87088; 87186; 87635; 87804; 93005; 93306; 93356; 93970; 94660; 97039; C1894; C9803; G0378; J0690; J0696; J1756; J1815; J1940; J3370; J7030; P9016; P9047